=== PATIENT | female | born 1955 | race Caucasian/White ===

== ENCOUNTER 2018-10-15 10:19 | Emergency (ER) | payer OTHER ==
[~2018-10-15] VITALS: Ht 160 cm; Wt 56.3 kg
[2018-10-15 10:22] VITALS: BP 121/58; PULSE 100; RESP 18; Ht 160 cm; Wt 56.3 kg
[2018-10-15] MEDS ORDERED: ALBUTEROL 0.083% (NEB) 2.5 MG/3 ML AMP HHN STA (10:56)
[2018-10-15] MEDS ORDERED: IPRATROPIUM (NEB) 0.5 MG/2.5 ML AMP HHN ONE (11:00)
[2018-10-15] MEDS ORDERED: AZIT250T PO (11:51)
[2018-10-15] MEDS ORDERED: ALBU18HF INHALATION (11:51)
[2018-10-15] MEDS ORDERED: ACET500C5 PO (11:51)
--- NOTE | 2018-10-15 11:54 | ERD ---
ER Documentation Chief Complaint Chief Complaint pt is bib family with c/o cough, congestion, cold symptoms for a few days HPI 63-year-old female presents with 3-4-day history of productive cough. Pleuritic anterior chest pain, congestion. Denies any history of asthma. Denies diabetes. ROS All systems reviewed and are negative except as per history of present illness. Medications Home Meds Active Scripts Albuterol Sulfate* (Ventolin HFA*) 18 Gm Hfa.aer.ad, 2 PUFF INHALATION Q4H for 7 Days, #1 INHALER Prov:RUTHANN PEREA MD 10/15/18 Acetaminophen* (Tylophen*) 500 Mg Capsule, 1 CAP PO Q6H PRN for PAIN AND OR ELEVATED TEMP, #15 CAP Prov:RUTHANN PEREA MD 10/15/18 Azithromycin* (Zithromax*) 250 Mg Tablet, 250 MG PO .ZPACK DIRECTED, #6 TAB TAKE 500 MG (2 TABS) THE FIRST DAY THEN 250 MG (1 TAB) DAYS 2-5 Prov:RUTHANN PEREA MD 10/15/18 Allergies Allergies: Coded Allergies: No Known Allergy (Unverified , 10/15/18) PMhx/Soc Hx Alcohol Use: No Hx Substance Use: No Hx Tobacco Use: No Smoking Status: Never smoker FmHx Family History: No diabetes, No coronary disease, No other Physical Exam Vitals Vital Signs Date Temp Pulse Resp B/P (MAP) Pulse Ox O2 O2 Flow FiO2 Time Delivery Rate 10/15/18 79 18 96 21 11:13 10/15/18 99.0 100 18 121/58 96 10:22 (79) Physical Exam Const: No acute distress Head: Atraumatic Eyes: Normal Conjunctiva ENT: Normal External Ears, Nose and Mouth. TMs and oropharynx normal. Neck: Full range of motion. No meningismus. Resp: Clear to auscultation bilaterally with bilateral rhonchi and wheezing without appreciable rales or retractions. Cardio: Regular rate and rhythm, no murmurs Abd: Soft, non tender, non distended. Normal bowel sounds Skin: No petechiae or rashes Back: No midline or flank tenderness Ext: No cyanosis, or edema Neur: Awake and alert Psych: Normal Mood and Affect Results 24 hrs Current Medications Medications Dose Sig/Kerri Start Time Status Last (Trade) Ordered Route PRN Stop Time Admin Dose Reason Admin Albuterol 2.5 mg ONCE STAT 10/15/18 DC 10/15/18 (Proventil HHN 10:56 11:04 0.083% (Neb)) 10/15/18 10:57 Ipratropium 0.5 mg ONCE ONCE 10/15/18 DC 10/15/18 [facility] 11:00 11:04 (Atrovent 10/15/18 11:01 0.02% (Neb)) Procedures/MDM Patient presents with URI symptoms, productive cough and wheezing for last 3-4 days. She has no evidence of hypoxemia or respiratory distress. EKG: Rate/Rhythm: Normal Sinus Rhythm. Rate equals 88. QRS, ST, T-waves: No changes consistent w/ acute ischemia Impression: No evidence of ischemia or arrhythmia. Impression-no acute findings of ischemia or significant arrhythmia. Chest X-ray 1V Interpreted by me: Soft Tissue: No acute abnormalities Bones: No acute abnormalities Mediastinum/Cardiac Silhouette/Lungs: No acute abnormalities impression-no acute findings on 1 view chest x-ray. Calcified aorta. Given albuterol treatment x1, Decadron 8 mg by mouth. Patient had improved breath sounds on serial exam. Patient will be treated empirically with Zithromax, Ventolin, Tylenol, primary care follow-up and return precautions. The patient was stable with no new complaints during the ER course. Clinically, there is no current evidence to suggest meningitis, sepsis, acute abdomen, pneumonia, stroke, acute coronary syndrome, pulmonary embolism, aortic dissec tion or any other emergent condition appearing to require further evaluation or hospitalization. Patient counseled regarding my diagnostic impression and care plan. Prior to discharge all questions answered. Pt agrees with treatment plan and understands strict return precautions. Pt is instructed to follow up with primary care provider within 24-48 hours. Precautionary instructions provided including instructions to return to the ER if not improving or for any worsening or changing symptoms or concerns. Departure Diagnosis: Primary Impression: Wheeze Additional Impression: Cough Condition: Stable Patient Instructions: Bronchitis With Wheezing (Adult) Additional Instructions: Cheque otro vez con [place] doctor primario en el proximo morgan or regresa para mas o nueva simptomas. RUTHANN PEREA MD Oct 15, 2018 11:54
[2018-10-15] MEDS ORDERED: DEXAMETHASONE 4 MG TAB PO ONE (12:00)
== END 2018-10-15 12:12 | disposition home or self-care (01) ==
LOC: FTE 10:19
DX: R06.2 Wheezing (principal); R07.9 Chest pain, unspecified
CPT/HCPCS: 71045; 93005; 94664